=== PATIENT | male | born 1945 | race Caucasian/White ===

== ENCOUNTER 2017-01-05 08:56 | Emergency (ER) | payer OTHER ==
[~2017-01-05] VITALS: Ht 172.7 cm; Wt 104.0 kg
[~2017-01-05 08:56] MED LIST: ALAVERT10 MG PO; ALBUTEROL17 G1 IH; ANTACID500 MG PO; ARTIFICIAL TEAR15 M6 BOTH EYES; ASCOCID-500500 MG PO; ASMANEX TW200 MICRO1 IH; AVELOX400 MG PO; AZITHROMYCIN500 M1 PO; CORTEF10 MG PO; COUMADIN,JANTOVE4 MG PO; COUMADIN3 MG PO; COUMADIN6 MG PO; DOXYCYCLINE150 MG PO; FLUNISOLIDE25 M2 NS; FORADIL AEROLI12 MCG IH; FUROSEMIDE20 MG PO; FUROSEMIDE40 MG PO; HUMIRA40 MG/0.1 SC; HYDROCORTISONE10 MG PO; HYDROXYCHLOROQ200 MG PO; HYTRIN2 M1 PO; IMURAN50 MG PO; IPRATROPIU0.2 MG/1 M IH; MAGNESIUM OXID400 MG PO; METOLAZONE2.5 MG PO; MORPHINE SULFAT15 M1 PO; MORPHINE SULFAT30 M1 PO; NEURONTIN400 M1 PO; NEURONTIN600 MG PO; PAXIL30 MG PO; PAXIL40 MG PO; PERCOCET 5-3251 EACH PO; POTASSIUM CHLO10 ME4 PO; PREDNISOL15 ML OP; PREDNISONE5 MG PO; PRILOSEC20 MG PO; PROVENTIL,2.5 MG/3 M IH; PSYLLIUM390 GM PO; RESTASIS1 EACH OP; SALAGEN5 MG PO; SIMVASTATIN80 M1 PO; SPIRIVA1 INHALATI IH; SULFASALAZINE500 MG PO; SYMBICORT60 INHALAT IH; THERAGRAN1 TABLET PO; VITAMIN D400 UNI2 PO; ZANTAC150 M1 PO; ZAROXOLYN2.5 MG PO; ZESTRIL40 MG PO
[2017-01-05 10:04] LABS: HEMATOCRIT 33.3 % (38.0-50.0); MCH 28.6 PG (29.0-34.0); MCHC 30.3 G/DL (30.0-36.0); MCV 94.3 FL (86-99); PLATELET COUNT 312 K/uL (156-360); RBC DIS.WIDTH-CV 14.9 % (11.8-14.6); RBC DIS.WIDTH-SD 52.1 % (39-53); RED BLOOD COUNT 3.53 M/uL (4.00-5.50); WHITE BLOOD COUNT 7.6 K/uL (4.1-10.2)
[2017-01-05 10:07] LABS: CHLORIDE 104 mEq/L (99-109); POTASSIUM 4.4 mEq/L (3.7-5.4); SODIUM 143 mEq/L (136-147)
[2017-01-05 10:09] LABS: GLUCOSE 134 mg/dL (70-99)
[2017-01-05 10:10] LABS: ANION GAP 7 MEQ/L (2-14)
[2017-01-05 10:12] LABS: GFR ESTIMATE (CALCULATED) 49 mL/min/
[2017-01-05 10:13] LABS: UREA NITROGEN (BUN) 27 mg/dL (9-23)
[2017-01-05 10:21] LABS: TROP-I INTERPRETATION NEGATIVE; TROPONIN-I < 0.01 ng/mL (0.0-0.30)
[2017-01-05 12:43] VITALS: BP 133/58
== END 2017-01-05 12:45 | disposition home or self-care (01) ==
LOC: EME 08:56
PROVIDERS: Emergency Medicine
DX: R41.82 Altered mental status, unspecified (principal); I12.9 Hypertensive chronic kidney disease with stage 1 through stage 4 chronic kidney disease, or unspecified chronic kidney disease; N18.9 Chronic kidney disease, unspecified; J44.9 Chronic obstructive pulmonary disease, unspecified; Z99.81 Dependence on supplemental oxygen; F03.90 Unspecified dementia, unspecified severity, without behavioral disturbance, psychotic disturbance, mood disturbance, and anxiety; F43.10 Post-traumatic stress disorder, unspecified; M06.9 Rheumatoid arthritis, unspecified; Z87.891 Personal history of nicotine dependence; Z91.040 Latex allergy status; Z88.0 Allergy status to penicillin
CPT/HCPCS: 71020; 80048; 84484; 85027; 93005; 99281; 99285

== ENCOUNTER 2017-05-16 11:55 | Inpatient (IN) | payer OTHER ==
[~2017-05-16] VITALS: Ht 185.4 cm; Wt 119.2 kg
[2017-05-16] VITALS (8 sets, daily range): BP systolic 92–139; BP diastolic 53–71
[~2017-05-16 11:55] MED LIST changes: -HYTRIN2 M1 PO; +HYTRIN2 MG PO; -ZANTAC150 M1 PO; +ZANTAC150 MG PO
[2017-05-16 12:27] LABS: EOSINOPHIL (%) 0.8 % (0-5); EOSINOPHIL COUNT 0.1 K/uL (0-0.3); HEMATOCRIT 28.9 % (38.0-50.0); IMMATURE GRANULOCYTE (%) 0.4 % (0.0-0.7); IMMATURE GRANULOCYTE COUNT 0.1 K/uL; LYMPHOCYTE COUNT 0.7 K/uL (1.0-2.8); MCH 27.7 PG (29.0-34.0); MCHC 29.1 G/DL (30.0-36.0); MCV 95.4 FL (86-99); MONOCYTE (%) 9.4 % (3-12); MONOCYTE COUNT 1.6 K/uL (0-0.8); NEUTROPHIL (%) 85.1 % (45-76); PLATELET COUNT 185 K/uL (156-360); RBC DIS.WIDTH-CV 16.6 % (11.8-14.6); RBC DIS.WIDTH-SD 58.3 % (39-53); RED BLOOD COUNT 3.03 M/uL (4.00-5.50); WHITE BLOOD COUNT 16.4 K/uL (4.1-10.2)
[2017-05-16 12:32] LABS: BASE EXCESS 13.4 mEq/L (-3 to +3); CARBOXY HGB 1.3 % (0-5); METHEMOGLOBIN 1.1 % (0-1.5); pH 7.32 (7.35-7.45)
[2017-05-16 12:33] LABS: BICARBONATE 41.7 mEq/L (22-26); COMMENTS - BLOOD GASES A+C+; DEVICE 980 PB MASK; FI02 100 %; MODE SPONT NIV; PCO2 81 mm Hg (35-45); PEEP 8 CM/H20; PO2 106 mm Hg (80-100); PRES. SUPPORT 14 CM/H2O; SITE RB; TOTAL RESP RATE 13 resp/min
[2017-05-16 12:38] LABS: CHLORIDE 101 mEq/L (99-109); POTASSIUM 5.1 mEq/L (3.7-5.4); SODIUM 145 mEq/L (136-147)
[2017-05-16 12:40] LABS: GLUCOSE 107 mg/dL (70-99)
[2017-05-16 12:41] LABS: ANION GAP 9 MEQ/L (2-14)
[2017-05-16 12:42] LABS: TOTAL BILIRUBIN 0.4 mg/dL (0.0-1.0)
[2017-05-16 12:43] LABS: ALKALINE PHOSPHATASE 74 IU/L (3-129)
[2017-05-16 12:44] LABS: GFR ESTIMATE (CALCULATED) 49 mL/min/
[2017-05-16 12:45] LABS: UREA NITROGEN (BUN) 38 mg/dL (9-23)
[2017-05-16 12:53] LABS: TROP-I INTERPRETATION NEGATIVE; TROPONIN-I 0.03 ng/mL (0.0-0.30)
[2017-05-16] MEDS ORDERED: ZYRTEC10 M3 PO (14:28)
[2017-05-16] MEDS ORDERED: ARTIFICIAL TEAR1510 BOTH EYES (14:29)
[2017-05-16] MEDS ORDERED: TYLENOL EXTRA500 MG PO (14:31)
[2017-05-16] MEDS ORDERED: VITAMIN D31000 UNI2 PO (14:31)
[2017-05-16] MEDS ORDERED: ANECREAM30 GM TP (14:35)
[2017-05-16] MEDS ORDERED: B-121000 MC2 PO (14:35)
[2017-05-16] MEDS ORDERED: PRED FORTE100 DROP/5 BOTH EYES (14:37)
[2017-05-16] MEDS ORDERED: ZOCOR80 MG PO (14:37)
[2017-05-16] MEDS ORDERED: ABILIFY5 MG PO (14:39)
[2017-05-16] MEDS ORDERED: MELATIN3 MG PO (14:40)
[2017-05-16] MEDS ORDERED: REMERON30 M2 PO (14:40)
[2017-05-16] MEDS ORDERED: PAXIL20 MG PO (14:41)
[2017-05-16 19:47] LABS: INTER. NORMALIZED RATIO 2.7; PROTHROMBIN TIME 31.2 SEC (10.2-12.9)
[2017-05-16 19:50] LABS: PTT 36.8 SEC (25-37)
[2017-05-16 20:37] LABS: METH RESISTANT S AUREUS PCR NEGATIVE (NEGATIVE)
[2017-05-16 22:09] LABS: PROBE CHECK PASS; SPECIMEN PROCESSING CONTROL PASS
[2017-05-16 23:59] LABS: BILIRUBIN NEGATIVE; BLOOD NEGATIVE; COLOR YELLOW ((YELLOW)); GLUCOSE (STRIP) NEGATIVE; KETONES NEGATIVE; LEUKOCYTES NEGATIVE; NITRITE NEGATIVE; PROTEIN (STRIP) 30; SPECIFIC GRAVITY 1.018 (1.000-1.030); UROBILINOGEN 0.2 MG/DL (0.2-1.0)
[2017-05-17] VITALS (20 sets, daily range): BP systolic 121–172; BP diastolic 65–96
[2017-05-17 00:02] LABS: ADD MIUA? NO; UCUL ADDED? NO
[2017-05-17 00:35] LABS: POINT-OF-CARE METER ID UU13113748
[2017-05-17 05:30] LABS: POINT-OF-CARE METER ID UU13113748
[2017-05-17 11:25] LABS: EOSINOPHIL (%) 0.1 % (0-5); HEMATOCRIT 29.9 % (38.0-50.0); IMMATURE GRANULOCYTE (%) 0.7 % (0.0-0.7); IMMATURE GRANULOCYTE COUNT 0.1 K/uL; INSTRUMENT ABS NEUTROPHIL CT 15.5 K/uL; LYMPHOCYTE COUNT 0.6 K/uL (1.0-2.8); MCH 27.2 PG (29.0-34.0); MCHC 28.1 G/DL (30.0-36.0); MCV 96.8 FL (86-99); MEAN PLAT.VOLUME 9.8 uM^3 (9.0-12.4); MONOCYTE (%) 4.4 % (3-12); MONOCYTE COUNT 0.8 K/uL (0-0.8); NEUTROPHIL (%) 91.4 % (45-76); NEUTROPHIL COUNT 15.5 K/uL (1.8-6.4); PLATELET COUNT 168 K/uL (156-360); RBC DIS.WIDTH-CV 16.8 % (11.8-14.6); RBC DIS.WIDTH-SD 58.9 % (39-53); RED BLOOD COUNT 3.09 M/uL (4.00-5.50); WHITE BLOOD COUNT 16.9 K/uL (4.1-10.2)
[2017-05-17 11:37] LABS: INTER. NORMALIZED RATIO 2.9; PROTHROMBIN TIME 33.2 SEC (10.2-12.9)
[2017-05-17 11:39] LABS: PTT 39.9 SEC (25-37)
[2017-05-17 11:57] LABS: ANION GAP 5 MEQ/L (2-14); CHLORIDE 105 MEQ/L (99-109); GFR ESTIMATE (CALCULATED) 45 mL/min/; GLUCOSE 136 mg/dL (70-99); MAGNESIUM 1.4 mg/dl (1.3-2.7); POTASSIUM 5.3 MEQ/L (3.7-5.4); SAMPLE HEMOLYSIS CHECK 0; SAMPLE ICTERIC CHECK 0; SAMPLE LIPEMIA CHECK 0; SODIUM 140 MEQ/L (136-147); UREA NITROGEN (BUN) 46 mg/dL (9-23)
[2017-05-17 21:21] LABS: POINT-OF-CARE METER ID UU13113748
[2017-05-18 05:52] LABS: EOSINOPHIL (%) 0.3 % (0-5); HEMATOCRIT 28.4 % (38.0-50.0); IMMATURE GRANULOCYTE (%) 0.8 % (0.0-0.7); IMMATURE GRANULOCYTE COUNT 0.1 K/uL; INSTRUMENT ABS NEUTROPHIL CT 12.6 K/uL; LYMPHOCYTE COUNT 0.5 K/uL (1.0-2.8); MCH 27.1 PG (29.0-34.0); MCHC 28.9 G/DL (30.0-36.0); MCV 93.7 FL (86-99); MEAN PLAT.VOLUME 9.5 uM^3 (9.0-12.4); MONOCYTE (%) 5.3 % (3-12); MONOCYTE COUNT 0.7 K/uL (0-0.8); NEUTROPHIL (%) 90.3 % (45-76); NEUTROPHIL COUNT 12.6 K/uL (1.8-6.4); PLATELET COUNT 165 K/uL (156-360); RBC DIS.WIDTH-CV 16.6 % (11.8-14.6); RBC DIS.WIDTH-SD 57.1 % (39-53); RED BLOOD COUNT 3.03 M/uL (4.00-5.50)
[2017-05-18 06:15] LABS: ANION GAP 5 MEQ/L (2-14); CHLORIDE 106 MEQ/L (99-109); GFR ESTIMATE (CALCULATED) 53 mL/min/; GLUCOSE 117 mg/dL (70-99); POTASSIUM 5.1 MEQ/L (3.7-5.4); SAMPLE HEMOLYSIS CHECK 0; SAMPLE ICTERIC CHECK 0; SAMPLE LIPEMIA CHECK 0; SODIUM 144 MEQ/L (136-147); UREA NITROGEN (BUN) 44 mg/dL (9-23)
[2017-05-18 06:32] LABS: INTER. NORMALIZED RATIO 2.3; PROTHROMBIN TIME 25.7 SEC (10.2-12.9)
[2017-05-18 08:13] VITALS: BP 186/87
[2017-05-18 10:49] VITALS: BP 165/72
[2017-05-18 16:38] VITALS: BP 156/98
[2017-05-19 00:19] VITALS: BP 169/74
[2017-05-19 06:42] LABS: PROTHROMBIN TIME 23.1 SEC (10.2-12.9)
[2017-05-19 07:34] VITALS: BP 136/69
[2017-05-19 11:17] VITALS: BP 157/74
[2017-05-19 16:15] VITALS: BP 152/68
[2017-05-19 19:34] VITALS: BP 148/71
[2017-05-19 23:52] VITALS: BP 144/64
[2017-05-20 05:54] LABS: MCH 27.3 PG (29.0-34.0); MCHC 28.7 G/DL (30.0-36.0); MCV 95.2 FL (86-99); MEAN PLAT.VOLUME 9.8 uM^3 (9.0-12.4); PLATELET COUNT 162 K/uL (156-360); RBC DIS.WIDTH-CV 16.4 % (11.8-14.6); RBC DIS.WIDTH-SD 57.7 % (39-53); RED BLOOD COUNT 3.15 M/uL (4.00-5.50); WHITE BLOOD COUNT 6.4 K/uL (4.1-10.2)
[2017-05-20 06:02] LABS: INTER. NORMALIZED RATIO 2.1; PROTHROMBIN TIME 24.3 SEC (10.2-12.9)
[2017-05-20 06:36] LABS: ANION GAP 6 MEQ/L (2-14); CHLORIDE 100 MEQ/L (99-109); GFR ESTIMATE (CALCULATED) > 59 mL/min/; GLUCOSE 141 mg/dL (70-99); POTASSIUM 4.6 MEQ/L (3.7-5.4); SAMPLE HEMOLYSIS CHECK 0; SAMPLE ICTERIC CHECK 0; SAMPLE LIPEMIA CHECK 0; SODIUM 145 MEQ/L (136-147); UREA NITROGEN (BUN) 33 mg/dL (9-23)
[2017-05-20 07:23] VITALS: BP 142/80
[2017-05-20 08:53] LABS: INTERNAL CONTROL VALID? YES
[2017-05-20 11:17] VITALS: BP 152/73
[2017-05-20 15:19] VITALS: BP 172/81
[2017-05-20] MEDS ORDERED: MUCINEX600 MG PO (15:30)
[2017-05-20] MEDS ORDERED: SOLU-MEDRO125 MG/21 IV (15:31)
[2017-05-22 12:00] LABS: CREATININE 1.5 mg/dL (0.6-1.3); POTASSIUM 5.7 mEq/L (3.7-5.4)
== END 2017-05-20 19:04 | disposition short-term general hospital (02) | DRG 189 ==
LOC: EME 11:55 → 4WEST 15:00 → EDOF 15:00 → CANRESERV 15:06 → ENRESERV 15:06 → 4WEST 17:06 → ENRESERV 05-17 15:43 → 5EAST 05-17 23:00
PROVIDERS: Emergency Medicine; Family Medicine; Internal Medicine Pulmonary Disease; Specialist
PROC: 5A09357 Assistance with Respiratory Ventilation, Less than 24 Consecutive Hours, Continuous Positive Airway Pressure (ICD-10-PCS; principal; 2017-05-16)
DX: J96.21 Acute and chronic respiratory failure with hypoxia (principal); J18.9 Pneumonia, unspecified organism; J44.0 Chronic obstructive pulmonary disease with (acute) lower respiratory infection; J96.22 Acute and chronic respiratory failure with hypercapnia; N18.4 Chronic kidney disease, stage 4 (severe); J44.1 Chronic obstructive pulmonary disease with (acute) exacerbation; E87.4 Mixed disorder of acid-base balance; I12.0 Hypertensive chronic kidney disease with stage 5 chronic kidney disease or end stage renal disease; F43.10 Post-traumatic stress disorder, unspecified; M06.9 Rheumatoid arthritis, unspecified; E66.9 Obesity, unspecified; I95.9 Hypotension, unspecified; G47.33 Obstructive sleep apnea (adult) (pediatric); F32.9 Major depressive disorder, single episode, unspecified; E11.22 Type 2 diabetes mellitus with diabetic chronic kidney disease; I44.0 Atrioventricular block, first degree; R65.20 Severe sepsis without septic shock; F03.90 Unspecified dementia, unspecified severity, without behavioral disturbance, psychotic disturbance, mood disturbance, and anxiety; R00.0 Tachycardia, unspecified; E11.9 Type 2 diabetes mellitus without complications; I89.0 Lymphedema, not elsewhere classified; F41.9 Anxiety disorder, unspecified; Z85.118 Personal history of other malignant neoplasm of bronchus and lung; Z86.711 Personal history of pulmonary embolism; Z79.899 Other long term (current) drug therapy; Z88.0 Allergy status to penicillin; Z88.8 Allergy status to other drugs, medicaments and biological substances; Z91.040 Latex allergy status; Z79.51 Long term (current) use of inhaled steroids; F41.8 Other specified anxiety disorders; Z87.891 Personal history of nicotine dependence; Z92.3 Personal history of irradiation; Z79.01 Long term (current) use of anticoagulants; Z99.81 Dependence on supplemental oxygen
CPT/HCPCS: 36600; 71010; 80047; 80048; 80053; 80202; 81003; 82565; 82803; 82948; 83605; 83735; 84100; 84484; 84520; 85025; 85027; 85610; 85730; 87040; 87449; 87641; 93005; 94002; 94640; 94640 76; 94660; 94667; 94668; 94760; 94799; 99202; 99281; 99285; J0456; J1720; J1940; J1956; J2930; J3370; J7030; J7040; J7512; S0028